=== PATIENT | female | born 1995 | race Caucasian/White ===

== ENCOUNTER 2018-01-09 15:15 | Inpatient (IN) | payer OTHER ==
[~2018-01-09] VITALS: Ht 162.6 cm; Wt 3.2 kg
[2018-01-26] MEDS ORDERED: PRENATABS RX T1 EACH PO (21:56)
== END 2018-01-30 14:31 | disposition home or self-care (01) | DRG 766 ==
LOC: OB/GYN 01-13 15:15 → LDR 01-26 21:16 → OB/GYN 01-26 21:16 → LDR 01-27 05:40 → OB/GYN 01-27 17:20
PROVIDERS: Obstetrics & Gynecology
PROC: 4A033R1 Measurement of Arterial Saturation, Peripheral, Percutaneous Approach (ICD-10-PCS; 2018-01-27)
PROC: 4A1HXCZ Monitoring of Products of Conception, Cardiac Rate, External Approach (ICD-10-PCS; 2018-01-27)
PROC: 10D00Z1 Extraction of Products of Conception, Low, Open Approach (ICD-10-PCS; principal; 2018-01-27 05:45)
DX: O62.0 Primary inadequate contractions (principal); Z3A.40 40 weeks gestation of pregnancy; Z37.0 Single live birth